=== PATIENT | male | born 1955 ===

== ENCOUNTER 2024-12-16 10:04 | Outpatient (AMB) | payer MEDICARE, SELFPAY ==
--- OUTSIDE RECORDS SUMMARY | 2024-12-16 11:06 | XMS_ITS | Clinical Summary ---
Author Organization [facility] Address [address] [place] [address] Care Team Providers Care Meter Reader Name Role Phone Unavailable Primary Care Provider Unavailabl e Social History Tobacco Use Types Packs/Day Years Used Date Smoking Tobacco: Never Assessed Sex and Gender Information Value Date Recorded Sex Assigned at Not on file Legal Sex Male 11:26 AM EDT Gender Identity Not on file Sexual Orientation Not on file Plan of Treatment Health Maintenance Due Date Last Done Comments Hepatitis C Virus Screening 1957 DTaP/Tdap/Td Vaccines (1 - Tdap) 1976 Pneumococcal Vaccines 50+ (1 of 1 - PCV) 2007 Zoster (Shingles) Vaccine (1 of 2) 2007 COVID-19 Vaccine ( - 2023-2 5 season) 2023 RSV Vaccine 60 years and old er and Patients (1 - 1-dose 75+ series) 2032 Hepatitis B Vaccines Aged Out No long er eligible based on patient's age to complete this topic
--- OUTSIDE RECORDS SUMMARY | 2024-12-16 11:06 | XMS_ITS | Clinical Summary ---
Author Organization [facility] Address [address] [place] [phone] Phone Care Team Providers Care Cell Biology Scientist Name Role Phone Binh Ware MD Primary Care Provider [phone] Allergies No known active allergies Medications amLODIPine (NORVASC) 10 mg tablet Take 1 tablet (10 mg total) by mouth daily. Active atorvastatin (LIPITOR) 40 mg tablet Take 1 tablet (40 mg total) by mouth daily. Active lisinopriL (PRINIVIL,ZESTR IL) 20 mg tablet Take 1 tablet (20 mg total) by mouth daily. Active omeprazole (PriLOSEC) [address] capsule Take 1 capsule (40 mg total) by mouth daily. Active Active Problems Problem Noted Date Diagnosed Date Iron deficiency anemia due to chronic blood loss 2019 Surgical History Surgery Date Site/Laterality Comments WISDOM TOOTH EXTRACTION PROCEDURE:WISDOM TOOTH EXTRACTION Medical History Medical History Date Comments Prostate cancer ([facility] V24 , [facility] V28) DX:Prostate cancer (HCC) Anemia DX:Anemia GERD (gastroesophageal reflux disease) DX:GERD (gastroesophageal reflux disease) Hypertension DX:Hypertension Peptic ulceration DX:Peptic ulce ration Hemorrhoids DX:Hemorrhoids Family History Medical History Relation Name Comments Heart attack Father Hypertension Father Cancer Mother Relation Name Status Comments Father Mother Social History Tobacco Use Types Packs/Day Years Used Date Smoking Tobacco: Never Alcohol Use Standard Drinks/Week Comments Yes 0 (1 standard drink = 0.6 oz pur e alcohol) Social Sex and Gender Information Value Date Recorded Sex Assigned at Male 05/08/2024 12:48 PM EST Legal Sex Male 1:01 AM EST Gender Identity Male 05/08/2024 12:48 PM EST Sexual Orientation Straight 05/08/2024 12 :48 PM EST Obstetrics History Last Filed Vital Signs Vital Sign Reading Time Taken Comments Blood Pressure 124/86 05/08/2024 12:55 PM EST Pulse 81 05/08/2024 12:55 PM EST Temperature 36.6 C (97.8 F) 05/08/2024 12:55 PM EST Respiratory Rate - - Oxygen Saturation 99% 05/08/2024 12:55 PM EST Inhaled Oxygen Concentration - - Weight 76.2 kg (168 lb) 04/10/2024 9:39 AM EST Height 167.6 cm (5' 6 ) 10/10/2023 9:34 AM EDT Body Mass Index 27.12 10/10/2023 9:34 AM EDT Plan of Treatment Upcoming Encounters Date Type Department Care Team (Late st Contact Info) Description 01/08/2025 10:30 AM EDT Office Visit [facility] Hematology Oncology [address] [place] [address] Gary Tobin MD [address] [place] [address] Health Maintenance Due Date Last Done Comments DTaP,Tdap,and Td Vaccines (1 - Tdap) 1976 Zoster Vaccines (1 of 2) 1976 Pneumococcal Vaccine: 50+ Years (1 of 1 - PCV) 2007 Cholesterol Screening (Lipid Panel) 03/27/2022 Colorectal Cancer Screening: Colonoscopy 03/27/2022 Hepatitis C Screening 03/27/2022 Medicare Annual Wellness Visit 03/27/2022 Social Influencers of Health Screening 03/27/2022 Hypertension/CHF/CAD Annual BMP Blood Test 04/09/2022 Falls Risk Assessment 2022 COVID-19 Vaccine (3 - 2023-2 5 season) 2023 08/22/2020, 07/28/2020 Depression Screening 04/24/2024 Influenza Vaccine (#1) 2024 RSV Immunization Adult Patients (1 - 1-dose 75+ series) 2032 HIB Vaccines Aged Out No longer eligi ble based on patient's age to complete this topic HPV Vaccines Aged Out No longer eligi ble based on patient's age to complete this topic Hepatitis A Vaccines Aged Out No long er eligible based on patient's age to complete this topic Hepatitis B Vaccines Aged Out No long er eligible based on patient's age to complete this topic IPV Vaccines Aged Out No longer eligi ble based on patient's age to complete this topic MMR Vaccines Aged Out No longer eligi ble based on patient's age to complete this topic Meningococcal ACWY Vaccine Aged Out N o longer eligible based on patient's age to complete this topic Meningococcal B Vaccine Aged Out No l onger eligible based on patient's age to complete this topic RSV Immunization Patients Under 20 months Aged Out No longer eligible b ased on patient's age to complete this topic Varicella Vaccines Aged Out No longer eligible based on patient's age to complete this topic Insurance AETNA MEDICARE ADVANTAGE Care Teams Cell Biology Scientist Relationship Specialty Start Date End Date Binh Ware MD [address] [place] [address] [address] [place], [place] PCP - General Internal Medicine 06/18/18
--- OUTSIDE RECORDS SUMMARY | 2024-12-16 11:06 | XMS_ITS | Encounter Summary ---
Author Organization [facility] Address [address] [place] [address] Care Team Providers Care Pile Fabric Knitter Name Role Phone Binh Ware Primary Care Provider Encounter Details Date Type Department Care Team (Late st Contact Info) Description 09/05/2022 Transcribe Orders [facility] Patient Access Center [address] [place] [address] Binh Ware [address] [place] [phone] Avulsion fracture of metatarsal bone of right foot, open, initial encounter (Primary Dx); Aftercare for healing pathologic fracture of humerus, right; Moderate right ankle sprain, initial encounter Social History Tobacco Use Types Packs/Day Years Used Date Smoking Tobacco: Never Assessed Sex and Gender Information Value Date Recorded Sex Assigned at Not on file Legal Sex Male 7:18 AM EDT Gender Identity Not on file Sexual Orientation Not on file documented as of this encounter Plan of Treatment Not on file documented as of this encounter Visit Diagnoses Diagnosis Avulsion fracture of metatarsal bone of right foot, open, initial encounter- Primary Aftercare for healing pathologic fracture of humerus, right Moderate right ankle sprain, initial encounter documented in this encounter Care Teams Pile Fabric Knitter Relationship Specialty Start Date End Date Binh Ware [address] [place] [phone] PCP - General Internal Medicine 09/05/22 documented as of this encounter
--- OUTSIDE RECORDS SUMMARY | 2024-12-16 11:06 | XMS_ITS | Clinical Summary ---
Author Organization [facility] Address [address] [place] [address] Phone Care Team Providers Care Internet Salesperson Name Role Phone Binh Ware MD Primary Care Provider + Allergies No known active allergies Medications amLODIPine (NORVASC) 10 MG tablet Take 10 mg by mouth daily. Active atorvastatin (LIPITOR) 40 MG tablet Take 40 mg by mouth daily. Active omeprazole (PRILOSEC) 40 MG capsule Take by mouth daily. 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 Not on channing e 09/12/2023 Are you concerned about learning? Not on file 09/12/2023 No 09/12/2023 No 09/12/2023 Digital Access Answer Date Recorded No 09/12/2023 No 09/12/2023 Reliable internet access at home? Not on file 09/12/2023 Device with a working camera? Not on file Intimate Partner Violence Answer Date R ecorded Are you denied basic needs s uch as food, clothing, or medical care? No 08/09/2024 In the past 12 months have y ou been in a relationship with a person who hurts, threatens, or tries to control you? No 08/09/2024 Are you denied basic needs s uch as food, clothing, or medical care? No 08/09/2024 In the past 12 months have y ou been in a relationship with a person who hurts, threatens, or tries to control you? No 08/09/2024 Sex and Gender Information Value Date Recorded Sex Assigned at Not on file Legal Sex Male 6:10 PM EST Gender Identity Not on file Sexual Orientation Not on file Last Filed Vital Signs Vital Sign Reading Time Taken Comments Blood Pressure - - Pulse - - Temperature - - Respiratory Rate - - Oxygen Saturation - - Inhaled Oxygen Concentration - - Weight 81.6 kg (180 lb) 09/28/2023 9:53 AM EDT Height 167.6 cm (5' 6 ) 09/28/2023 9:53 AM EDT Body Mass Index 29.05 09/28/2023 9:53 AM EDT Plan of Treatment Health Maintenance Due Date Last Done Comments Adult Td,Tdap Booster 1957 CREATININE LEVEL 1957 LIPID PANEL 1957 POTASSIUM LEVEL 1957 DEPRESSION SCREENING 1969 HEPATITIS C SCREENING 1975 SCREENING FOR DIABETES 1992 COLOGUARD 2002 COLONOSCOPY 2002 COLORECTAL CANCER SCREENING 2002 FIT TEST 2002 FOBT 2002 SIGMOIDOSCOPY 2002 VIRTUAL COLONOSCOPY 2002 PNEUMOCOCCAL VACCINES (50+ years) (1 of 1 - PCV) 2007 ZOSTER VACCINES (1 of 2) 2007 COVID-19 VACCINE (3 - 2023-2 5 season) 2023 08/22/2020, 07/28/2020 RSV VACCINE (1 - 1-dose 75+ series) 2032 SMOKING STATUS SCREENING (On ce After 26 Yrs) Completed 08/09/2024 HEPATITIS A VACCINES Aged Out No long er eligible based on patient's age to complete this topic HIB VACCINES Aged Out No longer eligi ble based on patient's age to complete this topic MENINGOCOCCAL VACCINES (ACWY) Aged Out No longer eligible based on patient's age to complete this topic MENINGOCOCCAL VACCINES (B) Aged Out N o longer eligible based on patient's age to complete this topic Medical Devices Not on file Insurance AETNA PPO MEDICARE REPLACEMENT AETNA PPO MEDICARE REPLACEMENT AETNA PPO MEDICARE REPLACEMENT AETNA PPO MEDICARE REPLACEMENT AETNA PPO MEDICARE REPLACEMENT AETNA PPO MEDICARE REPLACEMENT Care Teams Internet Salesperson Relationship Specialty Start Date End Date Binh Ware MD [address] [facility] [address] [place] [address] PCP - General 08/29/14 Additional Source Comments The information contained in this document represents components of the legal health record. It is not the complete legal health record.[facility]
--- OUTSIDE RECORDS SUMMARY | 2024-12-16 11:06 | XMS_ITS | Clinical Summary ---
Author Organization [facility] Address [address] [place] [address] Care Team Providers Care Jockey'S Agent Name Role Phone Binh Ware MD Primary Care Provider [phone] Allergies No known active allergies Medications Medication Sig Dispensed Refills Start Date End Date Status simvastatin (ZOCOR) tablet 40 mg Take 1 tablet (40 mg total) by mouth every night at bedtime. 0 Active lisinopril (PRINIVIL,ZESTRIL) tablet 20 mg Take 1 tablet (20 mg total) by mouth daily. 0 Active amLODIPine (NORVASC) tablet 10 mg Take 1 tablet (10 mg total) by mouth daily. 0 Active omeprazole (PriLOSEC) 40 MG capsule Take 1 capsule (40 mg total) by mouth daily. 0 Active atorvastatin (LIPITOR) tablet 40 mg Take 1 tablet (40 mg total) by mouth daily. 0 Active Active Problems Problem Noted Date Diagnosed Date Iron deficiency anemia due to chronic blood loss 2019 Family History Medical History Relation Name Comments Heart attack Father Hypertension Father Cancer Mother Relation Name Status Comments Father Mother Social History Tobacco Use Types Packs/Day Years Used Date Smoking Tobacco: Never Tobacco Cessation:Counseling Given: Not Answered Alcohol Use Standard Drinks/Week Comments Yes 0 (1 standard drink = 0.6 oz pur e alcohol) SOCIALLY Sex and Gender Information Value Date Recorded Sex Assigned at Male 10/10/2022 4:02 PM EDT Gender Identity Male 10/18/2022 1:50 PM EDT Sexual Orientation Straight 10/18/2022 1: 50 PM EDT Job Start Date Occupation Industry Not on file Not on file Not on file Last Filed Vital Signs Vital Sign Reading Time Taken Comments Blood Pressure 123/81 10/23/2023 1:22 PM EDT Pulse 88 10/23/2023 1:22 PM EDT Temperature 37.3 C (99.1 F) 10/23/2023 1:22 PM EDT Respiratory Rate 18 10/23/2023 1:22 PM EDT Oxygen Saturation 99% 10/23/2023 1:22 PM EDT Inhaled Oxygen Concentration - - Weight 79.7 kg (175 lb 9.6 oz) 10/10/2023 9:34 A M EDT Height 167.6 cm (5' 6 ) 10/10/2023 9:34 AM EDT Body Mass Index 28.34 10/10/2023 9:34 AM EDT Plan of Treatment Health Maintenance Due Date Last Done Comments Hepatitis C Screening 1957 COVID-19 Vaccine (#1) 1957 Depression Screening 1969 Preventative Health Evaluation 1975 DTap / Tdap / Td (1 - Tdap) 1976 Colon Cancer Screening (Colonoscopy) 2002 Shingrix-Zoster Vaccine (1 of 2) 2007 Fall Risk Assessment 2022 Pneumococcal Vaccine (1 of 1 - PCV) 2022 Influenza Vaccine (#1) 2024 RSV Adult > 60+ Yrs or Pregn ant (1 - 1-dose 75+ series) 2032 Hepatitis B Vaccines Aged Out No long er eligible based on patient's age to complete this topic RSV Ped < 20 months Aged Out No longe r eligible based on patient's age to complete this topic Care Teams Jockey'S Agent Relationship Specialty Start Date End Date Binh Ware MD [address] [facility] [address] [place] [address] PCP - General Geriatric Medicine 05/21/19
== END 2024-12-16 16:14 | disposition home or self-care (01) ==
LOC: HO.HMGAL 10:04
PROVIDERS: Visit Provider Registered Nurse Emergency
DX: J30.89 Other allergic rhinitis (principal)
CPT/HCPCS: 95117; 95165

== ENCOUNTER 2025-03-12 09:14 | Outpatient (AMB) | payer MEDICARE, SELFPAY ==
--- OUTSIDE RECORDS SUMMARY | 2025-03-12 17:07 | XMS_ITS | Clinical Summary ---
Author Organization [facility] Address [address] [place] [address] Care Team Providers Care Recovery Collector Name Role Phone Binh Ware MD Primary Care Provider [phone] Allergies No known active allergies Medications Medication [...] age to complete this topic Care Teams Recovery Collector Relationship Specialty Start Date End Date Binh Ware MD [address] [facility] [address] [place] [address] PCP - General Geriatric Medicine 05/21/19
--- OUTSIDE RECORDS SUMMARY | 2025-03-12 17:07 | XMS_ITS | Encounter Summary ---
Author Organization [facility] Address [address] [place] [address] Phone Care Team Providers Care Dry Primer Powder Blender Name Role Phone Binh Ware MD Primary Care Provider + Encounter Details Date Type Department Care Team (Late st Contact Info) Description 08/09/2024 Procedure Pass [facility]ventional Radiology [address] [place] [address] Social History Tobacco Use Types Packs/Day Years Used Date Smoking Tobacco: Never Smokeless Tobacco: Never Alcohol Use Standard Drinks/Week Comments [...] documented as of this encounter Visit Diagnoses Not on filedocumented in this encounter Care Teams Dry Primer Powder Blender Relationship Specialty Start Date End Date Binh Ware MD [address] [facility] [address] [place] [address] PCP - General 08/29/14 documented as of this encounter Additional Source Comments The information contained in this document represents components of the legal health record. It is not the complete legal health record.[facility]
--- OUTSIDE RECORDS SUMMARY | 2025-03-12 17:07 | XMS_ITS | Encounter Summary ---
Author Organization [facility] Address [address] [place] [address] Care Team Providers Care Pressure Tank Operator Name Role Phone Binh Ware Primary Care Provider [phone] Encounter Details Date Type Department Care Team (Late st Contact Info) Description 09/05/2022 Transcribe Orders [facility] Patient Access Center [address] [place] [address] Binh Ware [address] [place] [phone] Avulsion fracture of metatarsal bone of right [...] encounter documented in this encounter Care Teams Pressure Tank Operator Relationship Specialty Start Date End Date Binh Ware [address] [place] [phone] PCP - General Internal Medicine 09/05/22 documented as of this encounter
--- OUTSIDE RECORDS SUMMARY | 2025-03-12 17:07 | XMS_ITS | Clinical Summary ---
Author Organization [facility] Address [address] [place] [address] Phone Care Team Providers Care Semiconductor Assembler Name Role Phone Binh Ware MD Primary Care Provider [phone] Allergies No known active allergies Medications amLODIPine [...] anemia due to chronic blood loss 2019 Encounters Date Type Department Care Team Description 01/08/2025 10:30 AM EDT Office Visit [facility] Hematology Oncology [address] [place] [address] Gary Tobin MD Iron deficiency anemia due to chronic blood loss (Primary Dx) from Last 3 Months Surgical History Surgery Date Site/Laterality Comments WISDOM TOOTH EXTRACTION PROCEDURE:WISDOM TOOTH EXTRACTION Medical History Medical History Date Comments Prostate cancer (CMS/HCC V24 , CMS/HCC V28) DX:Prostate cancer (HCC) Anemia DX:Anemia GERD [...] Sign Reading Time Taken Comments Blood Pressure 128/76 01/08/2025 10:40 AM EDT Pulse 81 01/08/2025 10:40 AM EDT Temperature 36.8 C (98.3 F) 01/08/2025 10:40 AM EDT Respiratory Rate - - Oxygen Saturation 97% 01/08/2025 10:40 AM EDT Inhaled Oxygen Concentration - - Weight 72.6 kg (160 lb) 01/08/2025 10:40 AM EDT Height 167.6 cm (5' 6 ) 10/10/2023 9:34 AM EDT Body Mass Index 25.82 10/10/2023 9:34 AM EDT Plan of Treatment Upcoming Encounters Date Type Department Care Team (Late st Contact Info) Description 04/09/2025 9:45 AM EST Office Visit [facility] Hematology Oncology [address] [place] [address] Gary Tobin MD [address] [place] [address] Health Maintenance Due Date Last Done Comments Colorectal Cancer Screening: Colonoscopy 1957 DTaP,Tdap,and Td Vaccines (1 - Tdap) 1976 Zoster Vaccines (1 of 2) 1976 Pneumococcal Vaccine: 50+ Years (1 of 1 - PCV) 2007 Cholesterol Screening (Lipid Panel) 03/27/2022 Hepatitis C Screening 03/27/2022 Medicare Annual Wellness Visit 03/27/2022 Social Influencers of Health Screening 03/27/2022 Hypertension/CHF/CAD Annual BMP Blood Test 04/09/2022 Falls Risk Assessment 2022 Depression Screening 04/24/2024 COVID-19 Vaccine (3 - 2024-2 6 season) 2024 08/22/2020, 07/28/2020 Influenza Vaccine (#1) 2024 RSV Immunization Adult [...] topic Insurance AETNA MEDICARE ADVANTAGE Care Teams Semiconductor Assembler Relationship Specialty Start Date End Date Binh Ware MD [address] [place] [address] [address] [place], [place] PCP - General Internal Medicine 06/18/18
--- OUTSIDE RECORDS SUMMARY | 2025-03-12 17:07 | XMS_ITS | Clinical Summary ---
Author Organization [employer] [facility] Address [address] [place] [address] Phone Care Team Providers Care Apparatus Engineering Technologist Name Role Phone Binh Ware MD Primary [...] 2007 ZOSTER VACCINES (1 of 2) 2007 INFLUENZA VACCINE (#1) 2024 COVID-19 VACCINE (3 - 2024-2 6 season) 2024 08/22/2020, 07/28/2020 RSV VACCINE (1 - 1-dose 75+ series) 2032 SMOKING STATUS SCREENING (On ce After 26 Yrs) Completed 08/09/2024 HEPATITIS A VACCINES Aged Out No long er eligible based on patient's age to complete this topic HIB VACCINES Aged Out No longer eligi ble based on patient's age to complete this topic IPV VACCINES Aged Out No longer eligi ble [...] REPLACEMENT AETNA PPO MEDICARE REPLACEMENT Care Teams Apparatus Engineering Technologist Relationship Specialty Start Date End Date Binh Ware MD [address] [facility] [address] [place] [address] PCP - General 08/29/14 Additional Source Comments The information contained in this document represents components of the legal health record. It is not the complete legal health record.[facility]
--- OUTSIDE RECORDS SUMMARY | 2025-03-12 17:07 | XMS_ITS | Clinical Summary ---
Author Organization [facility] Address [address] [place] [address] Care Team Providers Care Ornamental Bronze Worker Name Role Phone Binh Ware Primary Care Provider [phone] Allergies No known active allergies Medications amLODIPine (NORVASC) 10 mg tablet Take 10 mg by mouth once a day. Active lidocaine HCl-hydrocortis on ac 3-0.5 % cream APPLY TO AFFECTED AREA 3 TIMES A DAY NEEDED 07/13/2022 Active lisinopriL (PRINIVIL,ZESTR IL) 20 mg tablet Take 20 mg by mouth once a day. Active omeprazole (PriLOSEC) 40 mg capsule SMARTSI Capsule(s) By Mouth Daily 08/05/2022 Active simvastatin (ZOCOR) 40 mg tablet SMARTSI Tablet(s) By Mouth Daily 08/18/2022 Active Social History Tobacco Use Types Packs/Day Years Used Date Smoking Tobacco: Never Assessed Sex and Gender Information Value Date Recorded Sex Assigned at Not on file Legal Sex Male 7:18 AM EDT Gender Identity Not on file Sexual Orientation Not on file Plan of Treatment Health Maintenance Due Date Last Done Comments Cologuard 1957 Colon Cancer Screening 1957 Colonoscopy 1957 FOBT / Fit Test 1957 Hepatitis C Screening 1957 Sigmoidoscopy 1957 DTaP,Tdap,and Td Vaccines (1 - Tdap) 1979 Pneumococcal Vaccine: 50+ Years (1 of 1 - PCV) 2007 Zoster Vaccines (1 of 2) 2007 Alcohol/Substance Use Screening 04/24/2024 Depression Screening and Follow-Up 04/24/2024 Fall Risk Screening 04/24/2024 Health Care Proxy Review 04/24/2024 Social Drivers of Health Annual Screening 04/24/2024 Influenza Vaccine (#1) 2024 COVID-19 Vaccine (3 - 2024-2 6 season) 2024 08/22/2020, 07/28/2020 RSV Vaccine (60+ years old a nd patients) (1 - 1-dose 75+ series) 2032 Hepatitis B Vaccines Aged Out No long er eligible based on patient's age to complete this topic Insurance AET[employer] MCR Care Teams Ornamental Bronze Worker Relationship Specialty Start Date End Date Binh Ware [address] [place] [address] PCP - General Internal Medicine 09/05/22
--- OUTSIDE RECORDS SUMMARY | 2025-03-12 17:07 | XMS_ITS | Clinical Summary ---
Author Organization [facility] Address [address] [place] [address] Care Team Providers Care Carpet Measurer Name Role Phone Unavailable Primary Care Provider Unavailabl e Social History Tobacco Use Types Packs/Day Years Used Date Smoking Tobacco: Never Assessed Sex and Gender Information Value Date Recorded Sex Assigned at Not on file Legal Sex Male 11:26 AM EDT Gender Identity Not on file Sexual Orientation Not on file Plan of Treatment Health Maintenance Due Date Last Done Comments Advance Care Planning 1957 Hepatitis C Virus Screening 1957 DTaP/Tdap/Td Vaccines (1 - Tdap) 1976 Pneumococcal Vaccines 50+ (1 of 1 - PCV) 2007 Zoster (Shingles) Vaccine (1 of 2) 2007 COVID-19 Vaccine ( - 2023-2 5 season) 2024 RSV Vaccine 50 years and old er and Patients (1 - 1-dose 75+ series) 2032 Hepatitis B Vaccines Aged Out No long er eligible based on patient's age to complete this topic
--- OUTSIDE RECORDS SUMMARY | 2025-03-12 17:08 | XMS_ITS | Encounter Summary ---
Author Organization [facility] Address [address] [place] [address] Care Team Providers Care Nursery Teacher Name Role Phone Binh Ware MD Primary Care Provider Encounter Details Date Type Department Care Team Description 06/29/2023 Nurse Only [facility] Oncology Infusion Services [address] [place] [address] Mckenzie Burris RN Social History Tobacco Use Types Packs/Day Years [...] file Not on file Not on file documented as of this encounter Plan of Treatment Not on file documented as of this encounter Visit Diagnoses Not on filedocumented in this encounter Care Teams Nursery Teacher Relationship Specialty Start Date End Date Binh Ware MD [address] [place] [address] [address] [place] [address] PCP - General Geriatric Medicine 05/21/19 documented as of this encounter
== END 2025-03-12 09:15 | disposition home or self-care (01) ==
LOC: HO.HMGAL 09:14
PROVIDERS: PCP Internal Medicine; Visit Provider Registered Nurse Emergency
DX: J30.89 Other allergic rhinitis (principal)
CPT/HCPCS: 95117; 95165

== ENCOUNTER 2025-04-02 08:35 | Outpatient (AMB) | payer MEDICARE, SELFPAY | END 2025-04-02 08:37 | disposition home or self-care (01) | LOC: HO.HMGAL 08:35 | PROVIDERS: PCP Internal Medicine; Visit Provider Registered Nurse Emergency | DX: J30.89 Other allergic rhinitis (principal) | CPT/HCPCS: 95117; 95165 ==